=== PATIENT | male | born 1970 | race Caucasian/White ===

== ENCOUNTER 2024-12-13 19:08 | Inpatient (IN) | payer SELFPAY ==
[~2024-12-13] VITALS: Ht 182.9 cm; Wt 96.0 kg
[2024-12-13 19:32] LABS: BASOPHILS ABSOLUTE AUTO 0.08 K/mm3 (0.00-0.23); BASOPHILS PERCENT AUTO 1 % (0-2); EOSINOPHILS ABSOLUTE AUTO 0.03 K/mm3 (0.00-0.68); EOSINOPHILS PERCENT AUTO 0 % (0-6); Hematocrit 40.5 % (37.0-53.0); IMMATURE GRAN ABSOLUTE AUTO 0.03 K/mm3 (0.00-0.10); IMMATURE GRAN PERCENT AUTO 0 % (0-1); LYMPHOCYTES ABSOLUTE AUTO 2.09 K/mm3 (0.84-5.20); LYMPHOCYTES PERCENT AUTO 19 % (21-46); MONOCYTES ABSOLUTE AUTO 0.58 K/mm3 (0.16-1.47); MONOCYTES PERCENT AUTO 5 % (4-13); Mean Corpuscular HGB 29.4 pg (26.0-34.0); Mean Corpuscular HGB Conc 34.6 g/dL (31.5-36.5); Mean Corpuscular Volume 85 fL (80-100); Mean Platelet Volume 11.1 fL (9.1-12.4); NEUTROPHILS ABSOLUTE AUTO 8.32 K/mm3 (1.96-9.15); NEUTROPHILS PERCENT AUTO 75 % (41-73); Platelet Count 326 K/mm3 (150-400); RDW Coefficient Variation 12.6 % (11.7-14.2); RDW Standard Deviation 38.8 fL (35.1-46.3); Red Blood Cell Count 4.76 M/mm3 (4.30-5.90); White Blood Cell Count 11.13 K/mm3 (4.00-11.30)
[2024-12-13 20:06] LABS: Albumin, Blood 4.1 g/dL (3.4-5.0); Bilirubin, Total 0.6 mg/dL (0.1-1.0); Bun/Creatinine Ratio 7.1 (12.0-20.0); Calcium, Blood 9.5 mg/dL (8.5-10.1); Creatinine, Blood 0.99 mg/dL (0.60-1.20); Globulin, Blood 4.2 g/dL (2.2-4.0); Potassium, Blood 3.7 mmol/L (3.5-5.5); Total Protein, Blood 8.3 g/dL (6.4-8.2)
[2024-12-13] MEDS ORDERED: Aspirin 325 MG Tab PO ONE (20:25)
[2024-12-13 21:13] LABS: U Amphetamine Screen Not Detected; U Barbituate Screen Not Detected; U Benzodiazapine Screen Not Detected; U Buprenorphine Screen Not Detected; U Cannabinoids Screen Not Detected; U Cocaine Screen Not Detected; U Methadone Screen Not Detected; U Methamphetamine Screen Not Detected; U Opiates Screen Not Detected; U Oxycodone Screen Not Detected; U Phencyclidine Screen Not Detected
[2024-12-13] MEDS ORDERED: Ondansetron HCl 2 MG / ML 2ML Vial IV PRN (21:55)
[2024-12-13] MEDS ORDERED: FLU VACC TS2024-25(6MOS UP)/PF 45 MCG/0.5 ML SYRINGE IM ONE (21:55)
[2024-12-13] MEDS ORDERED: Atorvastatin 40 MG Tab PO SCH (22:00)
[2024-12-13] MEDS ORDERED: Clopidogrel Bisulfate 75 MG Tab PO SCH (22:00)
[2024-12-13] MEDS ORDERED: Enoxaparin 40 MG/0.4 ML SYR SC SCH (22:00)
[2024-12-13 22:28] LABS: Source, Urine Clean Catch
[2024-12-13 22:35] LABS: Bilirubin, Urine Neg (Neg); Blood, Urine Neg (Neg); Glucose Qualitative, Urine Neg (Neg); Ketones, Urine Neg (Neg); Leukocyte Esterase, Urine Neg (Neg); Nitrite, Urine Neg (Neg); Protein, Urine Neg (Neg); Specific Gravity, Urine 1.005 (1.003-1.022); Urobilinogen, Urine NORM (Normal)
[2024-12-13 22:43] LABS: Appearance, Urine Clear (Clear); Color, Urine Pale Yellow (P-Yellow)
[2024-12-13 22:55] VITALS: BP 156/95
--- NOTE | 2024-12-13 23:17 | NUR ---
HOSPITALIST CONTACT NEW ADMIT TO FLOOR AT 2235. UPON ARRIVAL TO ROOM PT RIGHT SIDE FLACID AND MARKED SLURRED SPEECH. PT HAS RIGHT SIDE FACIAL DROOP. PT NPO. NO CURRENT ORDER FOR MRI. PT HAS ORDERS TO START LOVENOX AND PLAVIX. CALL TO HOSPITALIST. DR SAUCEDO WANTS TO WAIT TO ORDER AN MRI. ORDER TO KEEP NPO; BEDSIDE SWALLOW FOR MEDICATIONS ONLY. ORDER FOR SPEECH THERAPY EVAL. CONFIRMED TO GIVE ORDERED MEDS OF LOVENOX AND PLAVIX. ORDER FOR Q4 NEURO CHECKS.
[2024-12-14] VITALS (7 sets, daily range): BP systolic 113–172; BP diastolic 74–111
[2024-12-14 05:32] LABS: BASOPHILS ABSOLUTE AUTO 0.07 K/mm3 (0.00-0.23); BASOPHILS PERCENT AUTO 1 % (0-2); EOSINOPHILS ABSOLUTE AUTO 0.14 K/mm3 (0.00-0.68); EOSINOPHILS PERCENT AUTO 2 % (0-6); Hematocrit 39.1 % (37.0-53.0); Hemoglobin 13.3 g/dL (13.5-17.5); IMMATURE GRAN ABSOLUTE AUTO 0.02 K/mm3 (0.00-0.10); IMMATURE GRAN PERCENT AUTO 0 % (0-1); LYMPHOCYTES ABSOLUTE AUTO 2.25 K/mm3 (0.84-5.20); LYMPHOCYTES PERCENT AUTO 30 % (21-46); MONOCYTES ABSOLUTE AUTO 0.49 K/mm3 (0.16-1.47); MONOCYTES PERCENT AUTO 7 % (4-13); Mean Corpuscular HGB 29.6 pg (26.0-34.0); Mean Corpuscular Volume 87 fL (80-100); Mean Platelet Volume 11.2 fL (9.1-12.4); NEUTROPHILS ABSOLUTE AUTO 4.52 K/mm3 (1.96-9.15); NEUTROPHILS PERCENT AUTO 60 % (41-73); Platelet Count 264 K/mm3 (150-400); RDW Coefficient Variation 12.7 % (11.7-14.2); RDW Standard Deviation 40.3 fL (35.1-46.3); Red Blood Cell Count 4.49 M/mm3 (4.30-5.90); White Blood Cell Count 7.49 K/mm3 (4.00-11.30)
--- NOTE | 2024-12-14 06:03 | NUR ---
PATIENT GIVES VERBAL CONSENT TO SPEAK WITH HIS GIRLFIEND, JHOANA LOYA REGARDING ALL ASPECTS OF HIS CARE. JHOANA'S NUMBER IS [phone]. JHOANA CALLED AND SPOKE TO THIS RN FOR AN UPDATE AFTER ADMISSION AND THEN AGAIN CALLED FOR UPDATE THIS MORNING. SHE SPOKE WITH CHARGE NURSE. JHOANA ADVISED OF CURRENT STROKE SYMPTOMS AND IMAGING PERFORMED. NO CHANGE TO NEURO STATUS OF PT THIS MORNING.
[2024-12-14 06:10] LABS: Albumin, Blood 3.6 g/dL (3.4-5.0); Bilirubin, Total 0.8 mg/dL (0.1-1.0); Bun/Creatinine Ratio 9.5 (12.0-20.0); Calcium, Blood 9.2 mg/dL (8.5-10.1); Creatinine, Blood 0.85 mg/dL (0.60-1.20); Globulin, Blood 3.7 g/dL (2.2-4.0); Potassium, Blood 3.9 mmol/L (3.5-5.5); Total Protein, Blood 7.3 g/dL (6.4-8.2)
--- NOTE | 2024-12-14 06:10 | NUR ---
GYPSUM CALCINER SUMMARY/NEW ADMIT SEE PREVIOUS NURSING NOTES PT ARRIVED TO ROOM AT 2235. PT UNABLE TO TRANSFER TO BED. FULL ASSIST TO TRANSFER WITH SLIDER SHEET. PT RIGHT SIDE WEAK. PT ABLE TO MAKE SLIGHT GROSS MOVEMENT; NO FINE MOTOR. PT SPEECH IS SLURRED AND PRESSURED. 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 HE WOKE UP WITH NEW ONSET SYMPTOMS IN [place]. PT DROVE FROM [place] TO [place] WITH NO IMPROVEMENT TO SYMPTOMS. PT LIVES IN [facility]. PT HAS A GIRLFRIEND WHO LIVES THERE TOO. PT DENIES SAFETY CONCERS. PT ON TELE; NORMAL SINUS IN THE 80'S. PT NPO PENDING ST EVAL. PER ORDER BEDSIDE SPEECH EVAL OK FOR MEDS ONLY. PT PASSED BEDSIDE SWALLOW EVAL. ABLE TO SWALLOW MEDS WHOLE WITH WATER. PT ORIENTED TO ROOM AND CALL LIGHT. PT IS A/OX4. ABLE TO MAKE NEEDS KNOWN. BED ALARM IN PLACE. Q4 NEURO CHECKS COMPLETE; NO IMPROVEMENTS/CHANGES TO PT NEURO CONDITION. CARE WILL CONTINUE UNTIL REPORT CAN BE GIVEN TO ONCOMING NURSE.
[2024-12-14 08:27] LABS: LDL/HDL RATIO 4.8; Very Low Density Lipoprot Chol 39 mg/dL (6-32)
[2024-12-14 08:28] LABS: CHOL/HDL RATIO 6.8; Cholesterol 277 mg/dL (50-200); HDL Cholesterol 41 mg/dL (>39); Low Density Lipoprotein Chol 197 mg/dL (0-110); Triglycerides 196 mg/dL (30-160)
[2024-12-14] MEDS ORDERED: Aspirin 81 MG Chew PO SCH (09:00)
[2024-12-14] MEDS ORDERED: Acetaminophen 325 MG TABLET PO PRN (14:35)
[2024-12-14] MEDS ORDERED: Labetalol HCL 5 MG/ML 4ML Injection (Single Dose) IV PRN (15:20)
--- NOTE | 2024-12-14 19:33 | NUR ---
report received and i assumed care of pt. very pleasent pt with significant right sided deficits, right arm and leg flaccid and slurred speech. pt was see by speech therapist and approved for a diet, barium swallow planned for the morning. pt also had echo this afternoon pt MRI was also done verifing CVA. Family is aware and plan is for family to come from [place] tomorrow. pt did very well this afternoon and was very optimistic about recovery pt was also working repeatedly on gaining strength to right arm and leg. through out the day pt speech has improved, becoming less slurred
--- NOTE | 2024-12-14 20:19 | NUR ---
HOSPITALIST CONTACT PT STATES HE TAKES TYLENOL PM AT HOME TO HELP HIM SLEEP. PT REQUESTING SLEEP AID. CALL TO HOSPITALIST TO ADVISE. SPOKE TO DR GOODWIN. NEW ORDER FOR 1 TAB TYLENOL PM AT BEDTIME NEEDED.
[2024-12-14] MEDS ORDERED: Acetaminophen 500MG/DP-Hydram 25MG HCL 1 Tab PO PRN (20:20)
[2024-12-15 04:59] VITALS: BP 135/78
--- NOTE | 2024-12-15 05:04 | NUR ---
AUTOMOBILE WASHER STEAM SUMMARY NO ACUTE CHANGES. PT A/OX4. PT REMAINS PLEASANT AND COOPERATIVE. SOMETIME TEARY WHEN SPEAKING WITH FAMILY. PT ABLE TO MAKE NEEDS KNOWN. PT RIGHT SIDE WEAKNESS PERSISTS. PT REPORTED AT BEGINNING OF SHIFT HE FELT HE HAS IMPROVED MOVEMENT BUT UPON WAKING THIS MORNING FEELS SLIGHTLY WEAKER. PT SPEECH REMAINS SLURRED AND PRESSURED. PT CALL LIGHT ACCESSIBLE. REGULAR INTERVAL ROUNDING COMPLETE. CARE WILL CONTINUE UNTIL REPORT GIVEN TO ONCOMING NURSE.
[2024-12-15 06:11] LABS: BASOPHILS ABSOLUTE AUTO 0.08 K/mm3 (0.00-0.23); BASOPHILS PERCENT AUTO 1 % (0-2); EOSINOPHILS ABSOLUTE AUTO 0.19 K/mm3 (0.00-0.68); EOSINOPHILS PERCENT AUTO 2 % (0-6); Hematocrit 38.7 % (37.0-53.0); Hemoglobin 13.3 g/dL (13.5-17.5); IMMATURE GRAN ABSOLUTE AUTO 0.02 K/mm3 (0.00-0.10); IMMATURE GRAN PERCENT AUTO 0 % (0-1); LYMPHOCYTES ABSOLUTE AUTO 2.08 K/mm3 (0.84-5.20); LYMPHOCYTES PERCENT AUTO 26 % (21-46); MONOCYTES ABSOLUTE AUTO 0.58 K/mm3 (0.16-1.47); MONOCYTES PERCENT AUTO 7 % (4-13); Mean Corpuscular HGB 29.5 pg (26.0-34.0); Mean Corpuscular HGB Conc 34.4 g/dL (31.5-36.5); Mean Corpuscular Volume 86 fL (80-100); Mean Platelet Volume 11.3 fL (9.1-12.4); NEUTROPHILS ABSOLUTE AUTO 5.03 K/mm3 (1.96-9.15); NEUTROPHILS PERCENT AUTO 63 % (41-73); Platelet Count 270 K/mm3 (150-400); RDW Coefficient Variation 12.7 % (11.7-14.2); RDW Standard Deviation 39.6 fL (35.1-46.3); Red Blood Cell Count 4.51 M/mm3 (4.30-5.90); White Blood Cell Count 7.98 K/mm3 (4.00-11.30)
[2024-12-15 06:36] LABS: Albumin, Blood 3.7 g/dL (3.4-5.0); Bilirubin, Total 0.8 mg/dL (0.1-1.0); Bun/Creatinine Ratio 9.9 (12.0-20.0); Calcium, Blood 9.1 mg/dL (8.5-10.1); Creatinine, Blood 1.01 mg/dL (0.60-1.20); Globulin, Blood 3.6 g/dL (2.2-4.0); Potassium, Blood 3.9 mmol/L (3.5-5.5); Total Protein, Blood 7.3 g/dL (6.4-8.2)
[2024-12-15 08:12] VITALS: BP 174/102
[2024-12-15 09:46] VITALS: BP 161/93
[2024-12-15] MEDS ORDERED: AmLODIPine Besylate 5 MG Tab PO SCH ×2 (12:00)
[2024-12-15 12:46] VITALS: BP 152/101
[2024-12-15 15:31] VITALS: BP 139/102
[2024-12-15] MEDS ORDERED: Baclofen 10 MG Tab PO ONE (16:00)
[2024-12-15] MEDS ORDERED: Baclofen 10 MG Tab PO PRN ×2 (16:00→21:00)
--- NOTE | 2024-12-15 19:14 | NUR ---
report received verified. pt doing ok today, pt is disappointed that he has less mobility today then previous night. Newer symptoms of facial numbing has been reported to MD, overall pt has remained the same as expected. PT/OT, Speech all worked with pt again today and is a good canidate for rehab. pt has remained more optimistic today. family arrived from [place] today and are at bedside.
[2024-12-15 19:33] VITALS: BP 145/87
[2024-12-16 02:59] VITALS: BP 144/90
--- NOTE | 2024-12-16 04:16 | NUR ---
SHIFT SUMMARY PATIENT DORSAL/PLANTAR MINIMAL FLEXION. NOW QUICKLY RAISING RIGHT LEG AND BENDING AT KNEES HAVING LIMITED MOVEMENT AT START OF SHIFT. NO RIGHT DIP TUBE ASSEMBLER MACHINE AT THIS TIME. SLURRED SPEECH AND BEDREST. DENIES CHEST PAIN, SOB, AND N/V. VSS/AFEBRILE. PIV INTACT. TELE MONITOR NSR 88. SLEPT ON/OFF WATCHING TV. SIGNIFICANT OTHER STAYED OVERNIGHT. CALL LIGHT IN REACH. BED IN LOWEST POSITION. WILL CONTINUE TO MONITOR UNTIL DAY SHIFT NURSE ASSUMES CARE.
[2024-12-16 08:39] VITALS: BP 152/88
[2024-12-16 16:03] VITALS: BP 123/76
--- NOTE | 2024-12-16 18:13 | NUR ---
report received verified pt a/o and doing very well today with increase movement to lower extremities, at bedside. constant instruction given to pt about eating and moving and exercise, pt was very responsive. pt did very well today and so far very optimistic about recovery. pt has had very uneventful day and awaits possible discharge tomorrow
[2024-12-16 19:39] VITALS: BP 134/94
--- NOTE | 2024-12-17 04:29 | NUR ---
SHIFT SUMMARY PATIENT HAD NO ACUTE CHANGES. AXOX 4 WITH SLURRED SPEECH AND RIGHT ARM FLACID. TELE MONITOR NSR 91. DENIES CHEST PAIN, SOB, AND N/V. SIGNIFICANT OTHER STAYES OVERNIGHT. VSS/AFEBRILE. POSSIBLE DISCHARGE. CALL LIGHT IN REACH. BED IN LOWEST POSITION. WILL CONTINUE TO MONITOR UNTIL DAY SHIFT NURSE ASSUMES CARE
[2024-12-17 04:39] VITALS: BP 118/87
[2024-12-17 07:37] VITALS: BP 128/84
[2024-12-17] MEDS ORDERED: AmLODIPine Besylate 5 MG Tab PO SCH (09:00)
[2024-12-17 15:01] VITALS: BP 133/81
--- NOTE | 2024-12-17 17:34 | NUR ---
SHIFT SUMMARY PT AOX4 WITH SLURRED SPEECH, IMPROVING THE DAY PROGRESSES. FAMILY AT THE BS ALL SHIFT. HE IS MEDICALLY CLEARED BUT LOGISTICS ARE STILL IN THE WORKS IN GETTING HIM BACK TO [place]. HE USES A LIFT [facility] HIS GF. MEDICATED FOR PAIN THIS AM FOR HIS R LEG. HE STATED MUCH RELIEF. PT REPOSITIONS SELF IN CHAIR AND BED. CALL LIGHT WITHIN REACH, BED LOCKED AND IN THE LOWEST POSITION. WILL REPORT TO ONCOMING NURSE.
[2024-12-17 19:57] VITALS: BP 134/93
[2024-12-18 03:35] VITALS: BP 129/79
--- NOTE | 2024-12-18 04:34 | NUR ---
Shift Summary Pt remains on bedrest, he has some strength in his R leg but his R arm is flaccid. He wasn't able to move his fingers on his R hand for me. R facial droop and slurred speech. Pt's family in the room, they say his has been improving. No acute changes t/o the shift. Voids in the urinal. Pt is AOx4.
[2024-12-18 07:26] VITALS: BP 139/84
[2024-12-18] MEDS ORDERED: Acetaminophen650 M1 PO (10:29)
[2024-12-18] MEDS ORDERED: AMLO10 PO (10:30)
[2024-12-18] MEDS ORDERED: ATOR80 PO (10:30)
[2024-12-18] MEDS ORDERED: BACLOFEN5 M1 PO (10:30)
[2024-12-18] MEDS ORDERED: CLOP75 PO (10:31)
--- NOTE | 2024-12-18 11:09 | NUR ---
DISCHARGE NOTE PT DISCHARGED TO HOME, PICKED UP BY HIS FAMILY. HARD SCRIPTS PROVIDED TO FAMILY, DISCHARGE INFORMATION REVIEWED. EDUCATION PROVIDED, THOROUGH EDUCATION. IV REMOVED. TELE RETURNED.
== END 2024-12-18 11:10 | disposition home or self-care (01) | DRG 65 ==
LOC: ER 19:08 → ERHOLD 19:09 → MEDS 19:09
PROVIDERS: Emergency Medicine; Family Medicine; Student in an Organized Health Care Education/Training Program; ADMIT Internal Medicine
DX: I63.89 Other cerebral infarction (principal); G81.91 Hemiplegia, unspecified affecting right dominant side; R47.01 Aphasia; R29.707 NIHSS score 7; E78.5 Hyperlipidemia, unspecified; I10 Essential (primary) hypertension; R13.10 Dysphagia, unspecified; Z28.21 Immunization not carried out because of patient refusal
CPT/HCPCS: 36415; 70450; 70496; 70498; 70551; 71045; 74230; 80053; 80061; 81003; 83036; 84484; 85025; 92507; 92523; 92526; 92610; 92611; 93005; 93010; 93306; 97110; 97112; 97162; 97166; 97530; 99285-25; A9270; J1650; Q9967